=== PATIENT | male | born 1940 | race Caucasian/White ===

== ENCOUNTER 2017-05-24 08:52 | Emergency (ER) | payer MEDICARE, BC ==
[~2017-05-24] VITALS: Ht 170.2 cm; Wt 81.0 kg
[~2017-05-24 08:52] MED LIST: ANDROGEL; ASPI81 PO; BISA10R; CARV20 PO; CENTTAB9 PO; DOCU1CAP39; FURO1TAB93 PO; KLOR20TA6 PO; LISI-363 PO; LOMO PO; PROS5TAB2 PO; PROZ20CA11 PO; RANI150 PO; SULF500 PO; SYNT175T PO
[2017-05-24 08:54] VITALS: BP 189/93; PULSE 94; RESP 16; TEMP 97.8
[2017-05-24] MEDS ORDERED: ASPI-516 CHEW (09:08)
[2017-05-24] MEDS ORDERED: LEVO175T2 PO (09:08)
[2017-05-24] MEDS ORDERED: PROZ40CA PO (09:08)
[2017-05-24] MEDS ORDERED: LISI-515 PO (09:08)
[2017-05-24] MEDS ORDERED: ALLO100T PO (09:08)
[2017-05-24] MEDS ORDERED: CARV12.52 PO (09:08)
[2017-05-24] MEDS ORDERED: XARE20TA PO (09:08)
[2017-05-24] MEDS ORDERED: CENTCHW4 CHEW (09:08)
[2017-05-24 09:28] VITALS: BP 181/90; PULSE 87; RESP 18; O2SAT 98
--- NOTE | 2017-05-24 09:31 | PD ---
HPI Chief Complaint: Nosebleed Time Seen by Provider: 09:11 Travel History International Travel<30 days: No Contact w/Intl Traveler<30days: No Traveled to known affect area: No History of Present Illness HPI 76 years old male complains of nosebleed. Patient states that he has history of recurrent nose bleeds in the past. 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 Patient states that his last dose of Xarelto was last night. Patient also on aspirin 81 mg daily. Patient did not take the aspirin last night. Patient has history hypertension and on hypertensive medications. Patient denies any recent injury to the nose. Patient has spontaneous nosebleed started this morning. Patient states that the recently and started back again. Patient denies any headache. Patient denies any chest pain or shortness of breath. Patient denies abdominal pain. PFSH Past Medical History Hx Anticoagulant Therapy: Yes Asthma: No Autoimmune Disease: No Blood Disorders: No Anxiety: No Depression: Yes Heart Rhythm Problems: No Cancer: No Cardiovascular Problems: Yes (HIGH CHOLESTEROL, HX [place] ) High Cholesterol: Yes Chemotherapy: No Chest Pain: No Congestive Heart Failure: No COPD: No Diabetes: No Diminished Hearing: No Endocrine: Yes Gastrointestinal Disorders: Yes (CHRONS DISEASE) GERD: No Glaucoma: No Genitourinary: Yes Hepatitis: No Hiatal Hernia: No Hypertension: Yes Kidney Stones: Yes Musculoskeletal: No Neurologic: No Psychiatric: Yes Reproductive: No Respiratory: Yes (SLEEP APNEA (CPAP)) Immunizations Current: No Myocardial Infarction: No Radiation Therapy: No Renal Failure: No Sickle Cell Disease: No Sleep Apnea: Yes Thyroid Disease: Yes Ulcer: No PNEUMOCCOCAL Vaccine (Year): 2 Past Surgical History Abdominal Surgery: Yes (3 SURGERIES FOR CROHN'S DISEASE (BOWEL RESECTIONS)) AICD: No Body Medical Devices: chrones Cardiac Surgery: No Ear Surgery: No Endocrine Surgery: No Eye Surgery: No Genitourinary Surgery: No Gynecologic Surgery: No Oral Surgery: No Pacemaker: No Thoracic Surgery: No Other Surgery: Yes Social History Alcohol Use: Yes (occasional BEER, WINE ONCE A WEEK) Tobacco Use: No Substance Use: No Allergies-Medications (Allergen,Severity, Reaction): Coded Allergies: penicillin G (Unverified Allergy, Severe, hives, 05/24/17) Sulfa (Sulfonamide Antibiotics) (Unverified Allergy, Unknown, does not remember, 05/24/17) Reported Meds & Prescriptions Reported Meds & Active Scripts Active Reported Xarelto (Rivaroxaban) 20 Mg Tab 20 Mg PO DAILY Allopurinol 100 Mg Tab 100 Mg PO BID Lisinopril 20 Mg Tab 20 Mg PO DAILY Centrum (Multiple Vitamins W/ Minerals) 1 Chew 1 Tab CHEW DAILY Levothyroxine (Levothyroxine Sodium) 175 Mcg Tab 175 Mcg PO DAILY Prozac (Fluoxetine HCl) 40 Mg Cap 60 Mg PO DAILY Carvedilol 12.5 Mg Tab 12.5 Mg PO BID Aspirin 81 Mg Chew 81 Mg CHEW DAILY Review of Systems General / Constitutional: No: Fever Eyes: No: Visual changes HENT: Positive: Nosebleed, No: Headaches Cardiovascular: No: Chest Pain or Discomfort Respiratory: No: Shortness of Breath Gastrointestinal: No: Abdominal Pain Genitourinary: No: Dysuria Musculoskeletal: No: Pain Skin: No Rash Neurologic: No: Weakness Psychiatric: No: Depression Endocrine: No: Polydipsia Hematologic/Lymphatic: No: Easy Bruising Physical Exam Narrative GENERAL: Well-nourished, well-developed patient. SKIN: Focused skin assessment warm/dry. HEAD: Normocephalic. EYES: No scleral icterus. No injection or drainage. Patient has small amount of fresh blood in the left naris. No active bleeding. No active bleeding in the back of the throat. NECK: Supple, trachea midline. No JVD or lymphadenopathy. CARDIOVASCULAR: Regular rate and rhythm without murmurs, gallops, or rubs. RESPIRATORY: Breath sounds equal bilaterally. No accessory muscle use. GASTROINTESTINAL: Abdomen soft, non-tender, nondistended. MUSCULOSKELETAL: No cyanosis, or edema. BACK: Nontender without obvious deformity. No CVA tenderness. Neurologic exam normal. Data Data Last Documented VS Vital Signs Date Time Temp Pulse Resp B/P (MAP) Pulse Ox O2 Delivery O2 Flow Rate FiO2 05/24/17 11:18 54 16 167/85 (112) 95 Room Air 05/24/17 08:54 97.8 Orders Orders Lidocai-Epi 1%-1:100,000 Inj (Xylocaine- (05/24/17 10:00) Clonidine (Catapres) (05/24/17 10:15) Acetamin-Hydrocod 325-5 Mg (Tarrs 5-325 (05/24/17 11:00) Ed Discharge Order (05/24/17 11:29) [facility] Medical Decision Making Medical Screen Exam Complete: Yes Emergency Medical Condition: Yes Differential Diagnosis Differential diagnosis including epistaxis, hypercoagulation. Narrative Course 76 years old male with epistaxis. Patient's on Xarelto and aspirin. Last dose was yesterday. Rhino Rocket inserted left-sided nose. Clonidine 0.1 mg by mouth given. Lortab 5/325, one tablet by mouth given. Blood pressure came under control. Patient stopped bleeding from the left-sided nose. Procedures Procedure Narrative 1% lidocaine with epinephrine left-sided nasal spray. Rhino Rocket was inserted left naris. Diagnosis Primary Impression: Epistaxis Additional Impression: Uncontrolled hypertension Patient Instructions: General Instructions Additional Instructions: Continue with blood pressure medication. Take medications as directed. Follow- up with ENT a personal physician for packing removal in 3 days. Return if persistent bleeding problem. Med/Other Pt SpecificInfo: Prescription(s) given Scripts Hydrocodone-Acetaminophen (Tarrs) 5 Mg-325 Mg Tab 1 TAB PO Q6H Y for PAIN, #12 TAB 0 Refills Prov: Gianni Arceo MD 05/24/17 Doxycycline Hyclate (Doxycycline Hyclate) 100 Mg Cap 100 MG PO BID for Infection, #10 CAP 0 Refills Prov: Gianni Arceo MD 05/24/17 Disposition: 01 DISCHARGE HOME Condition: Stable Gianni Arceo MD May 24, 2017 09:31
[2017-05-24] MEDS ORDERED: LIDOCAINE 1%/EPINEPHrine 1:100,000 SOLN 20 ML VIAL INFIL ONE (10:00)
[2017-05-24] MEDS ORDERED: cloNIDine HCL 0.1 MG TAB PO ONE (10:15)
[2017-05-24 10:54] VITALS: BP 176/86; PULSE 60; RESP 18; O2SAT 96
[2017-05-24] MEDS ORDERED: ACETAMINOPHEN/HYDROcodone 325 MG/5 MG TAB PO ONE (11:00)
[2017-05-24 11:18] VITALS: BP 167/85; PULSE 54; RESP 16; O2SAT 95
[2017-05-24] MEDS ORDERED: DOXY100C PO (11:33)
[2017-05-24] MEDS ORDERED: NORC5TAB PO (11:33)
== END 2017-05-24 11:42 | disposition home or self-care (01) ==
LOC: PHED 08:52
DX: R04.0 Epistaxis (principal); I10 Essential (primary) hypertension
CPT/HCPCS: 30901

== ENCOUNTER 2017-05-27 10:46 | Emergency (ER) | payer MEDICARE, BC ==
[~2017-05-27] VITALS: Ht 170.2 cm; Wt 78.9 kg
[~2017-05-27 10:46] MED LIST changes: +ALLO100T PO; -ANDROGEL; +ASPI-516 CHEW; -ASPI81 PO; -BISA10R; +CARV12.52 PO; -CARV20 PO; +CENTCHW4 CHEW; -CENTTAB9 PO; -DOCU1CAP39; +DOXY100C PO; -FURO1TAB93 PO; -KLOR20TA6 PO; +LEVO175T2 PO; -LISI-363 PO; +LISI-515 PO; -LOMO PO; +NORC5TAB PO; -PROS5TAB2 PO; -PROZ20CA11 PO; +PROZ40CA PO; -RANI150 PO; -SULF500 PO; -SYNT175T PO; +XARE20TA PO
[2017-05-27 10:56] VITALS: BP 164/79; PULSE 55; RESP 16; TEMP 97.3; O2SAT 95
--- NOTE | 2017-05-27 11:13 | PD ---
HPI Chief Complaint: ENT Complaint Time Seen by Provider: 11:00 Travel History International Travel<30 days: No Contact w/Intl Traveler<30days: No Traveled to known affect area: No History of Present Illness HPI 76yo M presents to the ED requesting removal of rhino rocket. Pt had epistaxis and came to the [place] ED on 05/[address] in left nostril. Has not had any bleeding since then. He went to his PMD this morning since he had a regular follow up appointment but his PMD wanted him to come to the ED for removal in case he starts to bleed again. Denies any other complaints. Pt is not on any anticoagulation at this time and not even taking aspirin since he is suppose to have a cystoscopy. PFSH Past Medical History Hx Anticoagulant Therapy: Yes (currently stopped) Asthma: No Autoimmune Disease: No Blood Disorders: No Anxiety: No Depression: Yes Heart Rhythm Problems: No Cancer: No Cardiovascular Problems: Yes (HIGH CHOLESTEROL, HX [place] ) High Cholesterol: Yes Chemotherapy: No Chest Pain: No Congestive Heart Failure: No COPD: No Diabetes: No Diminished Hearing: No Endocrine: Yes Gastrointestinal Disorders: Yes (CHRONS DISEASE) GERD: No Glaucoma: No Genitourinary: Yes Hepatitis: No Hiatal Hernia: No Hypertension: Yes Kidney Stones: Yes Musculoskeletal: No Neurologic: No Psychiatric: Yes Reproductive: No Respiratory: Yes (SLEEP APNEA (CPAP)) Immunizations Current: No Myocardial Infarction: No Radiation Therapy: No Renal Failure: No Sickle Cell Disease: No Sleep Apnea: Yes Thyroid Disease: Yes Ulcer: No PNEUMOCCOCAL Vaccine (Year): 2 Past Surgical History Abdominal Surgery: Yes (3 SURGERIES FOR CROHN'S DISEASE (BOWEL RESECTIONS)) AICD: No Body Medical Devices: chrones Cardiac Surgery: No Ear Surgery: No Endocrine Surgery: No Eye Surgery: No Genitourinary Surgery: No Gynecologic Surgery: No Oral Surgery: No Pacemaker: No Thoracic Surgery: No Other Surgery: Yes Social History Alcohol Use: Yes (occasional BEER, WINE ONCE A WEEK) Tobacco Use: No Substance Use: No Allergies-Medications (Allergen,Severity, Reaction): Coded Allergies: penicillin G (Unverified Allergy, Severe, hives, 05/27/17) Sulfa (Sulfonamide Antibiotics) (Unverified Allergy, Unknown, does not remember, 05/27/17) Reported Meds & Prescriptions Reported Meds & Active Scripts Active Reported Cyanocobalamin Inj (Cyanocobalamin) 1,000 Mcg/Ml Inj 1,000 Mcg IM Q30D Metformin ER (Metformin HCl) 1,000 Mg Pedro 1,000 Mg PO BID With evening meal Travatan Z Opth Drops (Travoprost) 0.004 % Soln 1 Drop EACH EYE HS Abilify (Aripiprazole) 5 Mg Tablet 1 Tab PO DAILY Ditropan (Oxybutynin Chloride) 5 Mg Tab 5 Mg PO QID PRN Fenofibrate Micronized 200 Mg Cap 200 Mg PO DAILY Isosorbide Mononitrate ER (Isosorbide Mononitrate) 30 Mg Pedro 30 Mg PO DAILY Allopurinol 100 Mg Tab 100 Mg PO BID Lisinopril 20 Mg Tab 20 Mg PO BID Centrum (Multiple Vitamins W/ Minerals) 1 Chew 1 Tab CHEW DAILY Levothyroxine (Levothyroxine Sodium) 175 Mcg Tab 175 Mcg PO DAILY Prozac (Fluoxetine HCl) 40 Mg Cap 60 Mg PO DAILY Carvedilol 12.5 Mg Tab 12.5 Mg PO BID Aspirin 81 Mg Chew 81 Mg CHEW DAILY Review of Systems Except as stated in HPI: all other systems reviewed are Neg Physical Exam Narrative GENERAL: 76yo M not in distress. SKIN: Focused skin assessment warm/dry. HEAD: Atraumatic. Normocephalic. EYES: Pupils equal and round. No scleral icterus. No injection or drainage. ENT: +Rhinorocket in left nostril. No blood in right nostril. Throat: No blood in posterior pharynx. NECK: Trachea midline. No JVD. CARDIOVASCULAR: Regular rate and rhythm. No murmur appreciated. RESPIRATORY: No accessory muscle use. Clear to auscultation. Breath sounds equal bilaterally. GASTROINTESTINAL: Abdomen soft, non-tender, nondistended. MUSCULOSKELETAL: No obvious deformities. No clubbing. No cyanosis. No edema. NEUROLOGICAL: Awake and alert. No obvious cranial nerve deficits. Motor grossly within normal limits. Normal speech. PSYCHIATRIC: Appropriate mood and affect; insight and judgment normal. Data Data Last Documented VS Vital Signs Date Time Temp Pulse Resp B/P (MAP) Pulse Ox O2 Delivery O2 Flow Rate FiO2 05/27/17 11:20 97.7 05/27/17 10:56 55 16 164/79 (107) 95 MDM Medical Decision Making Medical Screen Exam Complete: Yes Emergency Medical Condition: Yes Differential Diagnosis Epistaxis vs. removal of rhinorocket Narrative Course 76yo well appearing male here requesting removal of rhinorocket. Rhinorocket removed. Pt has been observed in the ED with no episodes of epistaxis. Pt has no symptoms. Return precautions given. Diagnosis Primary Impression: Encounter for removal of nasal packing Patient Instructions: General Instructions Departure Forms: Tests/Procedures Additional Instructions: Please follow up with your primary care physician in 3-7 days. Return to the ED if symptoms worsen. Med/Other Pt SpecificInfo: No Change to Meds Disposition: 01 DISCHARGE HOME Condition: Stable Yumiko Temple DO May 27, 2017 11:12
[2017-05-27 11:20] VITALS: TEMP 97.7
[2017-05-27] MEDS ORDERED: OXYB5TAB8 PO (11:21)
[2017-05-27] MEDS ORDERED: FENO200C PO (11:21)
[2017-05-27] MEDS ORDERED: CYAN1000P IM (11:21)
[2017-05-27] MEDS ORDERED: TRAV0.00 EACH EYE (11:21)
[2017-05-27] MEDS ORDERED: ISOS30TA3 PO (11:21)
[2017-05-27] MEDS ORDERED: METF-382 PO (11:21)
[2017-05-27] MEDS ORDERED: ABIL5TAB14 PO (11:21)
[2017-05-27 12:04] VITALS: BP 141/78
== END 2017-05-27 12:10 | disposition home or self-care (01) ==
LOC: PHEFT 10:46
DX: R04.0 Epistaxis (principal); E78.00 Pure hypercholesterolemia, unspecified; I10 Essential (primary) hypertension; Z48.00 Encounter for change or removal of nonsurgical wound dressing
CPT/HCPCS: 99281